=== PATIENT | female | born 1950 | race Caucasian/White ===

== ENCOUNTER → 2020-12-25 11:39 | Outpatient (BNVA) | payer MEDICARE, SELFPAY | PROVIDERS: Family Provider Nurse Practitioner; PCP Pediatrics; Visit Provider Nurse Practitioner | DX: I47.1 Supraventricular tachycardia (principal); Z13.6 Encounter for screening for cardiovascular disorders | CPT/HCPCS: 80053; 80061; 81000; 82306; 82607; 84443; 85025 ==

== ENCOUNTER 2021-01-07 19:13 | Observation (INO) | payer MEDICARE, SELFPAY ==
[2021-01-07 19:25] VITALS: BP 155/82; PULSE 65; RESP 18; TEMP 36.4; O2SAT 99; BMI 22.1
--- NOTE | 2021-01-07 19:35 | ECG_ITS ---
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 Measurements Intervals [place] Rate: 62 P: 40 LA: 114 QRS: -13 QRSD: 69 T: 29 QT: 372 QTc: 378 Interpretive Statements SINUS RHYTHM WITH SHORT LA INTERVAL INFERIOR MYOCARDIAL INFARCTION , PROBABLY OLD [40+ ms Q WAVE AND/OR ST/T ABNORMALITY IN II/aVF] No previous ECG available for comparison Electronically Signed On 01-07-2021 22:18:48 CDT by Emmanuelle Goldsmith M.D. [id number]
--- NOTE | 2021-01-07 19:35 | XR_ITS ---
WS: [id number] Portable AP upright chest, 01/07/2021 Clinical Data: weakness Comparison: PA chest, 01/11/2013. Findings: No nodules, masses or effusions are seen. The heart is normal. The pulmonary vascularity is not increased. No pneumonia or pneumothorax is seen. The aortic arch and descending aorta are tortuo us. There is a calcified granuloma at the right tracheobronchial region. XR/XR chest 1V portable [id number] Impression: Atherosclerosis.
--- NOTE | 2021-01-07 19:35 | CTR_ITS ---
PROCEDURE INFORMATION: Exam: CT Head Without Contrast Exam date and time: 01/07/2021 7:38 PM Age: 70 years old Clinical indication: Numbness / parasthesia and weakness, facial TECHNIQUE: Imaging protocol: Computed tomography of the head without contrast. Radiation optimization: All CT scans at this facility use at least one of these dose optimization techniques: automated exposure control; mA and/or kV adjustment per patient size (includes targeted exams where dose is matched to clinical indication); or iterative reconstruction. COMPARISON: No relevant prior studies available. RADIATION DOSE METRICS: Total DLP (mGy-cm): 686.47 FINDINGS: Brain: Mild volume loss and white matter disease are identified. There is no acute infarct or edema. No hemorrhage. Cerebral ventricles: No ventriculomegaly. Bones/joints: Unremarkable. No acute fracture. Paranasal sinuses: Visualized sinuses are unremarkable. No fluid levels. Mastoid air cells: Visualized mastoid air cells are well aerated. Soft tissues: Unremarkable. CT/CT head wo con* [id number] IMPRESSION: There are no acute concerning abnormalities. Radiation Dose CTDIVOL = (mGy): DLP = 686.47 (mGy-cm)
[2021-01-07 19:47] LABS: Basophils % 0.1 %; Eosinophils % 0.3 %; Hematocrit 38.1 % (37.0-47.0); Hemoglobin 12.7 g/dL (11.5-15.3); Lymphocytes # 0.9 10^3/uL (0.8-4.8); Mean Corpuscular HGB Conc 33.3 g/dL (30.0-36.0); Mean Corpuscular Hemoglobin 29.1 pg (28.0-34.0); Mean Corpuscular Volume 87.2 fL (81-99); Mean Platelet Volume 9.2 fL (7.4-10.4); Monocytes # 0.5 10^3/uL (0.2-0.9); Monocytes % 6.3 %; Neutrophils # 6.54 10^3/uL (1.8-7.7); Neutrophils % 81.8 %; Nucleated Red Blood Cells % 0 %; Platelet Count 280 10^3/cmm (130-400); Red Blood Count 4.37 10^6/uL (4.1-5.3); Red Cell Distribution Width 13.5 % (12.1-15.1)
[2021-01-07 19:58] LABS: Alanine Aminotransferase 15 U/L (0-33); Alkaline Phosphatase 90 IU/L (35-105); Anion Gap 17.2 (5-19); Aspartate Amino Transferase 20 U/L (0-32); Blood Urea Nitrogen 14 mg/dL (8-23); Calcium 9.2 mg/dL (8.5-10.5); Carbon Dioxide 21 mmol/L (22-29); Chloride 94 mmol/L (98-107); Globulin 2.3 g/dL (1.3-4.6); Glucose 144 mg/dL (65-115); Osmolality Calculated 269 mOsm/kg (285-295); Potassium 4.2 mmol/L (3.5-5.1); Sodium 128 mmol/L (136-145); Total Bilirubin 0.4 mg/dL (0.15-1.2); Total Protein 6.3 g/dL (6.6-8.7)
[2021-01-07 19:59] LABS: Add Urine Microscopic? NO
[2021-01-07 20:00] LABS: Troponin(5th) Baseline 9 ng/L (0-10)
[2021-01-07 20:09] LABS: Bilirubin Urine Neg (Negative); Blood Urine Neg (Negative); Glucose Urine UA Norm (Normal); Ketones Urine Negative (Negative); Leukocyte Esterase Urine Negative (Negative); Nitrate Urine Negative (Negative); Protein Urine Neg (Negative); Urine Appearance Clear (CLEAR); Urine Color Yellow (Yellow); Urobilinogen Urine Norm (Negative); pH Urine 7 (5-7)
--- NOTE | 2021-01-07 20:10 | PC.PHAR ---
pt states she takes care of her own medications-pt states she takes aspirin 81mg po daily prn-pt states she is only taking kcl 10meq po daily-ext med history shows last filled on 12/25/20 100d/s for 20meq po daily-pt states she got the moderna covid shot on 12/17/20
--- NOTE | 2021-01-07 20:14 | W.ED.NEUROSD ---
HPI - Neuro Symptoms/Deficit General: Chief Complaint: Neuro Symptoms/Deficit Stated Complaint: WEAKNESS Time Seen by Provider: 01/07/21 19:25 Source: patient and EMS Mode of arrival: EMS Limitations: no limitations History of Present Illness: HPI Narrative: 70-year-old female who states she started having left-sided facial numbness and numbness in her left side down her arm and leg starting yesterday. States she is also had some generalized weakness as well. She denies any difficulty speaking. She was able to ambulate here and has no obvious weakness. She denies any chest pain or headache. Denies any worsening improving factors. Associated symptoms: Deny chest pain, headache(s), nausea or vomiting Review of Systems Const: Denies: fever(s), chills, body aches or change in appetite Eyes: Denies: blurry vision or eye discomfort ENMT: Denies: throat pain or dental pain Card: Denies: chest pain Resp: Denies: dyspnea GI: Denies: abdominal pain, nausea, vomiting or diarrhea : Denies: dysuria Musc: Denies: neck pain or back pain Skin/Breast: Denies: rash Neuro: Reports: numbness in extremities and weakness in extremities; Denies: headache(s) Psych: Denies: depression Perry/Lymph: Denies: easy bruising All/Imm: Denies: urticaria PFSH ED PFSH: Medical History History of uterine cancer SVT (supraventricular tachycardia) Surgical History H/O: hysterectomy (~07/27/00) Family History Sister Asthma Father Cancer lung and colon Social History Smoking and tobacco status: never smoked Second hand smoke exposure: No Smoking risk assessment/counseling performed?: No Alcohol intake: never Desire information about alcohol rehabilitation?: No Counseling given: No Desire information about substance/drug rehabilitation?: No Counseling given: No Adopted: No Caregiver/support person: No Lives independently: Yes Household members: none Housing: House Marital status: Single Current occupational status: retired History of recent travel: No Current gender identity: Female NIH stroke score NIHSS: Level Of Consciousness - 1a: 0 Level Of Consciousness Questions - 1b: Both Correct Level Of Consciousness Commands - 1c: Both Correct Best Gaze - 2: Normal Visual Casas - 3: No Visual Loss Facial Palsy - 4: Normal Motor Arm Right - 5: No Drift Motor Arm Left - 5: No Drift Motor Leg Right - 6: No Drift Motor Leg Left - 6: No Drift Limb Ataxia - 7: Absent Sensory - 8: Normal Best Language - 9: No Aphasia Dysarthia - 10: Normal Extinction And Inattention - 11: 0 Score: Total Score: 0 Physical Exam Const: COMMON NORMALS: no acute distress, patient oriented x3 and healthy appearing HENMT: COMMON NORMALS: normocephalic and atraumatic HEAD & SCALP: normocephalic and atraumatic Eye: COMMON NORMALS: Equal, round and reactive pupils present and EOMs intact bilaterally PUPIL: Yes Equal, round and reactive pupils present Neck/C-Spine: COMMON NORMALS: full ROM and supple Chest: COMMONS NORMALS: normal inspection of the chest and normal palpation of entire chest wall Resp: COMMON NORMALS: normal respiratory effort, No retractions, No use of accessory muscles and clear to auscultation bilaterally AUSCULTATION: clear to auscultation bilaterally Cardio: COMMON NORMALS: regular rate, regular rhythm and No murmurs present (Cardio) RATE: regular rate RHYTHM: regular rhythm GI: COMMON NORMALS: Normal to inspection, nondistended, normoactive bowel sounds present, Soft to palpation, non-tender and no masses PALPATION: Yes Soft to palpation Extremity: COMMON NORMALS: normal to inspection and full ROM Neuro: COMMON NORMALS: patient oriented x3, moves all extremities and no focal motor deficits CRANIAL NERVES: Yes CN normal except as noted SPEECH: speech normal GAIT: Yes Normal gait present MOTOR EXAM: 5/5 motor strength present throughout Psych: COMMON NORMALS: mental status grossly normal, Normal thought process present and cooperative THOUGHT PROCESS: Normal thought process present Skin: COMMON NORMALS: no rashes or lesions noted and no wounds GENERAL SKIN EXAM: no rashes or lesions noted Course Vital Signs: Vital signs: Vital Signs Temperature 97.6 F 01/07/21 19:25 Pulse Rate 88 01/07/21 21:50 Respiratory Rate 16 01/07/21 21:50 Blood Pressure 156/82 01/07/21 21:50 Pulse Oximetry 97 01/07/21 21:50 MDM - Neuro Symptoms/Deficit MDM Narrative: Medical decision making narrative: Patient presents here with paresthesias along with weakness. Her CT head here shows no acute stroke. She is still having some paresthesias and is quite concerned. I will admit her for observation to rule out a CVA. She is not a TPA candidate as her symptoms have been going on for 2 days. Lab Data: Labs: Lab Results 01/07/21 01/07/21 01/07/21 Range/Units 19:25 19:35 19:35 WBC 8.0 (4.0-10.0) 10^3/ uL RBC 4.37 (4.1-5.3) 10^6/u L Hgb 12.7 (11.5-15.3) g/dL Hct 38.1 (37.0-47.0) % MCV 87.2 (81-99) fL MCH 29.1 (28.0-34.0) pg MCHC 33.3 (30.0-36.0) g/dL RDW 13.5 (12.1-15.1) % Plt Count 280 (130-400) 10^3/c mm MPV 9.2 (7.4-10.4) fL Neut % (Auto) 81.8 % Lymph % (Auto) 11.0 % [place] % (Auto) 6.3 % Eos % (Auto) 0.3 % Baso % (Auto) 0.1 % Neut # (Auto) 6.54 (1.8-7.7) 10^3/u L Lymph # (Auto) 0.9 (0.8-4.8) 10^3/u L [place] # (Auto) 0.5 (0.2-0.9) 10^3/u L Eos # (Auto) 0.0 (0.0-0.8) 10^3/u L Baso # (Auto) 0.0 (0.0-0.1) 10^3/u L Nucleated RBC % (a uto) 0 % Nucleated RBCs # 0.0 /100WBC PT 14.20 (12.1-14.9) SECO NDS INR 1.07 (0.8-1.2) Sodium (136-145) mmol/L Potassium (3.5-5.1) mmol/L Chloride (98-107) mmol/L Carbon Dioxide (22-29) mmol/L Anion Gap (5-19) BUN (8-23) mg/dL Creatinine (0.5-0.9) mg/dL GFR Calculation (90-130) mL/min Glucose (65-115) mg/dL Calculated Osmolal ity (285-295) mOsm/k g Calcium (8.5-10.5) mg/dL Total Bilirubin (0.15-1.2) mg/dL AST (0-32) U/L ALT (0-33) U/L Alkaline Phosphata se (35-105) IU/L Troponin T Baselin e (0-10) ng/L Total Protein (6.6-8.7) g/dL Albumin (3.5-5.2) g/dL Globulin (1.3-4.6) g/dL Urine Color Yellow (Yellow) Urine Appearance Clear (CLEAR) Urine pH 7 (5-7) Ur Specific Gravit y 1.010 (1.005-1.030) Urine Protein Neg (Negative) Urine Glucose (UA) Norm (Normal) Urine Ketones Negative (Negative) Urine Blood Neg (Negative) Urine Nitrate Negative (Negative) Urine Bilirubin Neg (Negative) Urine Urobilinogen Norm (Negative) mg/dL Ur Leukocyte Radha ase Negative (Negative) 01/07/21 01/07/21 Range/Units 19:35 19:35 WBC (4.0-10.0) 10^3/ uL RBC (4.1-5.3) 10^6/u L Hgb (11.5-15.3) g/dL Hct (37.0-47.0) % MCV (81-99) fL MCH (28.0-34.0) pg MCHC (30.0-36.0) g/dL RDW (12.1-15.1) % Plt Count (130-400) 10^3/c mm MPV (7.4-10.4) fL Neut % (Auto) % Lymph % (Auto) % [place] % (Auto) % Eos % (Auto) % Baso % (Auto) % Neut # (Auto) (1.8-7.7) 10^3/u L Lymph # (Auto) (0.8-4.8) 10^3/u L [place] # (Auto) (0.2-0.9) 10^3/u L Eos # (Auto) (0.0-0.8) 10^3/u L Baso # (Auto) (0.0-0.1) 10^3/u L Nucleated RBC % (a uto) % Nucleated RBCs # /100WBC PT (12.1-14.9) SECO NDS INR (0.8-1.2) Sodium 128 L (136-145) mmol/L Potassium 4.2 (3.5-5.1) mmol/L Chloride 94 L (98-107) mmol/L Carbon Dioxide 21 L (22-29) mmol/L Anion Gap 17.2 (5-19) BUN 14 (8-23) mg/dL Creatinine 0.7 (0.5-0.9) mg/dL GFR Calculation 83.0 L (90-130) mL/min Glucose 144 H (65-115) mg/dL Calculated Osmolal ity 269 L (285-295) mOsm/k g Calcium 9.2 (8.5-10.5) mg/dL Total Bilirubin 0.4 (0.15-1.2) mg/dL AST 20 (0-32) U/L ALT 15 (0-33) U/L Alkaline Phosphata se 90 (35-105) IU/L Troponin T Baselin e 9 (0-10) ng/L Total Protein 6.3 L (6.6-8.7) g/dL Albumin 4.0 (3.5-5.2) g/dL Globulin 2.3 (1.3-4.6) g/dL Urine Color (Yellow) Urine Appearance (CLEAR) Urine pH (5-7) Ur Specific Gravit y (1.005-1.030) Urine Protein (Negative) Urine Glucose (UA) (Normal) Urine Ketones (Negative) Urine Blood (Negative) Urine Nitrate (Negative) Urine Bilirubin (Negative) Urine Urobilinogen (Negative) mg/dL Ur Leukocyte Radha ase (Negative) Imaging Data^: CXR: Attestation: I personally reviewed and interpreted this imaging study as follows: My impression: no acute abnormality CT Head: Attestation: I personally reviewed and interpreted this imaging study as follows: Radiologist's impression: [address] [address] [address] Scan Report Signed Patient: Janel De La Rosa Unit #: [id number] : 1950 Age/Sex: 70 / F ADM Date: 01/07/21 Loc: ER Room/Bed: Attending Dr: Ordering Provider/Ordering MD: Jeff Allan MD Date of Service: 01/07/21 Procedure(s): CT head wo con* [id number] Accession Number(s): [id number] Report Number: [id number] PROCEDURE INFORMATION: Exam: CT Head Without Contrast Exam date and time: 01/07/2021 7:38 PM Age: 70 years old Clinical indication: Numbness / parasthesia and weakness, facial TECHNIQUE: Imaging protocol: Computed tomography of the head without contrast. Radiation optimization: All CT scans at this facility use at least one of these dose optimization techniques: automated exposure control; mA and/or kV adjustment per patient size (includes targeted exams where dose is matched to clinical indication); or iterative reconstruction. COMPARISON: No relevant prior studies available. RADIATION DOSE METRICS: Total DLP (mGy-cm): 686.47 FINDINGS: Brain: Mild volume loss and white matter disease are identified. There is no acute infarct or edema. No hemorrhage. Cerebral ventricles: No ventriculomegaly. Bones/joints: Unremarkable. No acute fracture. Paranasal sinuses: Visualized sinuses are unremarkable. No fluid levels. Mastoid air cells: Visualized mastoid air cells are well aerated. Soft tissues: Unremarkable. CT/CT head wo con* [id number] IMPRESSION: There are no acute concerning abnormalities. 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
[2021-01-07 20:38] LABS: INR 1.07 (0.8-1.2)
--- NOTE | 2021-01-07 21:35 | ECG_ITS ---
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 Measurements Intervals [place] Rate: 60 P: 60 MO: 150 QRS: -1 QRSD: 76 T: 31 QT: 388 QTc: 389 Interpretive Statements SINUS RHYTHM No previous ECG available for comparison Electronically Signed On 01-07-2021 22:33:01 CDT by Emmanuelle Goldsmith M.D. [id number]
[2021-01-07 21:50] VITALS: BP 156/82; PULSE 88; RESP 16; O2SAT 97
[2021-01-07] MEDS: aspirin 81 mg Chew Tablet 324 MG PO (22:07)
--- NOTE | 2021-01-07 22:08 | PM.HP ---
Providers/Chief Complaint Admitting Physician: Placido Camacho MD Primary Care Provider: Sonja Mcclure MD Chief Complaint: WEAKNESS History of Present Illness Janel De La Rosa is a 70 year old female who presented today with chief complaint of numbness of left side of her face heaviness in her left leg numbness and tingling. Patient received COVID-19 shot on 12/17 and recently started getting vitamin B-12 shots along vitamin D. She is a former and very active for her age, on 01/04 she started noticing heaviness on left side of her face and left leg. She did not experience any typical strokelike symptoms no slurring of speech, facial droop or motor weakness. She has been able to walk on her own and carry her daily activities. Today her symptoms were getting worse and she was worried about stroke. She lives 50 miles away, she was coming with her sister to the [facility] when she started experiencing nausea and dizziness, this stopped at the nearby gas station and called ambulance. NIH score 0 CT head unremarkable, chest x-ray unremarkable CBC normal sodium 128 noted, at the time of my evaluation NIH 0 systolic blood pressure 151, he was saturating well on room air, negative Sherry-Hallpike maneuver, EKG shows sinus rhythm Patient also noticed bright bleed after wiping herself today, she does endorse history of hemorrhoids, never had colonoscopy before, her hemoglobin is stable she is hemodynamically stable, she is also endorsing abdominal cramps and nausea but no vomiting. Review of Systems Const: Reports: body aches, change in appetite, fatigue and malaise; Denies: fever(s) or chills Eyes: Denies: change in vision ENMT: Denies: throat pain Card: Denies: chest pain Resp: Denies: dyspnea GI: Reports: nausea, early satiety and bloating; Denies: vomiting or diarrhea : Denies: flank pain Musc: Denies: neck pain Skin/Breast: Denies: rash Neuro: Denies: headache(s) Psych: Reports: anxiety Endo: Denies: polyuria Perry/Lymph: Denies: easy bruising All/Imm: Denies: urticaria Medications/Allergies Home Medications Medication Instructions Recorded Confirmed Last Taken Type syringe with needle 3 mL 25 gauge #1 ea 12/29/20 01/07/21 Unknown Rx x 1 acetaminophen [Tylenol Extra 500 mg PO PRN 01/07/21 01/07/21 01/07/21 History Strength] aspirin [Aspir-81] 81 mg PO DAILY PRN 01/07/21 01/07/21 01/07/21 History 2 tabs cyanocobalamin (vitamin B-12) 1,000 mcg IM Q30D 01/07/21 01/07/21 01/04/21 History ergocalciferol (vitamin D2) 1,250 mcg PO Q7D 01/07/21 01/07/21 01/07/21 History magnesium 250 mg PO DAILY 01/07/21 01/07/21 01/07/21 History metoprolol succinate [Toprol XL] 100 mg PO DAILY@08 01/07/21 01/07/21 01/07/21 History potassium chloride [Klor-Con M20] 10 meq PO DAILY 01/07/21 01/07/21 01/07/21 08:00 History Allergies Allergy/AdvReac Type Severity Reaction Status Date / Time piroxicam [From Feldene] AdvReac ADR-Gastrointestinal Verified 01/07/21 20:09 Upset prochlorperazine AdvReac ADR-Gastrointestinal Verified 01/07/21 20:09 [From Compazine] Upset PFSH Acute PFSH: Medical History History of uterine cancer SVT (supraventricular tachycardia) Surgical History H/O: hysterectomy (~07/27/00) Family History Sister Asthma Father Cancer lung and colon Social History Smoking and tobacco status: never smoked Second hand smoke exposure: No Smoking risk assessment/counseling performed?: No Alcohol intake: never Desire information about alcohol rehabilitation?: No Counseling given: No Desire information about substance/drug rehabilitation?: No Counseling given: No Adopted: No Caregiver/support person: No Lives independently: Yes Household members: none Housing: House Marital status: Single Current occupational status: retired History of recent travel: No Current gender identity: Female Vitals/I&O/Wt Last Vital Signs Temp 97.6 F 01/07/21 19:25 Pulse 88 01/07/21 21:50 Resp 16 01/07/21 21:50 BP 156/82 01/07/21 21:50 Pulse Ox 97 01/07/21 21:50 Weight last 48 hrs Weight 58.513 kg Physical Exam Narrative: EXAM NARRATIVE: Pleasant elderly female, appears stated age, NIH 0 Saturating well on room air S1, S2 Sherry-Hallpike maneuver negative Good strength of upper and lower extremities Sensations intact no facial droop No active neurological deficits Bilateral breath sounds no audible stridor or wheezing Abdomen soft nontender Lower extremity no edema gangrene or ulcer Anxious mood and appropriate affect No joint swelling or cellulitis Data : 01/07/21 19:35 01/07/21 19:35 A&P Assessment and plan (1) Paresthesia: Status: Acute (2) Weakness: Status: Acute (3) Vitamin B12 deficiency: Status: Acute Additional A&P Information Paresthesia Patient is endorsing left-sided facial numbness, heaviness in her left leg, she was concerned that her symptoms were related to COVID-19 vaccination which was done on 12/17, her symptoms started on 01/04 However her NIH is 0 no facial droop has good sensations I do believe her symptoms are secondary to B12 deficiency with active hyponatremia She is euvolemic does not take any SSRI, no previous history of smoking x-ray does not show any lung mass We will request urine and serum osmolarity, TSH and uric acid, I would avoid adding normal saline, like to do fluid restriction trial NIH is 0 she does not have typical strokelike symptoms, her only risk factor is age and hypertension, will request CTA head and neck, kindly reevaluate in the morning if there is merit of getting MRI at this point Hypertension: She takes metoprolol succinate 100 mg daily for her SVTs I would add lisinopril 10 mg daily Hyponatremia This seems to be acute in nature as 12/25/20 sodium level was normal She is euvolemic We will follow up with serum/urine osmolarity, currently on fluid restriction to rule out SIADH, follow-up with TSH He does take potassium for hypokalemia, blood sugar is within normal range, I do not suspect adrenal gland pathology Blood bleed per rectum Normal hemodynamics and stable hemoglobin Patient does have history of hemorrhoids Never had colonoscopy She will need outpatient follow-up SVT: Continue Toprol currently she is in sinus rhythm heart rate in 60-70 range PT evaluation in the morning Regular diet DVT prophylaxis Lovenox Full code Attestations Medical Necessity Statement*: Anticipating discharge in less than 48 hours currently need work-up of hyponatremia due to symptoms of paresthesia, heaviness in her leg Time Spent in Patient Care: 40mins Coding Level of Care Code Acute Cat Dog Or Other Pet Groomer for Chg Fwd Diagnoses Paresthesia R20.2 Weakness R53.1 Vitamin B12 deficiency E53.8
--- NOTE | 2021-01-07 22:17 | PC.NURSE ---
EKG done at 2205 and shown to ER doctor
[2021-01-07 22:32] LABS: Troponin 5 2HR 9.17 ng/L (0-10); Troponin 5 2HR Delta 0.17 ABS# (0-10)
[2021-01-07 22:33] VITALS: BP 151/81; PULSE 62; RESP 16; O2SAT 97
--- NOTE | 2021-01-07 23:13 | CTR_ITS ---
PROCEDURE INFORMATION: Exam: CT Angiography Head With Contrast Exam date and time: 01/07/2021 11:18 PM Age: 70 years old Clinical indication: Numbness and weakness; Patient HX: General weakness with left facial and arm parasthesia. ; Additional info: Paresthesia of face and left arm TECHNIQUE: Imaging protocol: Computed tomography angiography of the head with intravenous contrast. 3D rendering (Not supervised by radiologist): MIP and/or 3D reconstructed images were created by the technologist. Radiation optimization: All CT scans at this facility use at least one of these dose optimization techniques: automated exposure control; mA and/or kV adjustment per patient size (includes targeted exams where dose is matched to clinical indication); or iterative reconstruction. Contrast material: OMNI 350; Contrast volume: 95 ml; Contrast route: INTRAVENOUS (IV); COMPARISON: CT head wo con* [id number] 01/07/2021 8:21 PM RADIATION DOSE METRICS: Total DLP (mGy-cm): 1688.18 FINDINGS: ANTERIOR CIRCULATION: Right internal carotid artery: Unremarkable. Intracranial segment is patent with no significant stenosis. No aneurysm. Right middle cerebral artery: Unremarkable. No occlusion or significant stenosis. No aneurysm. Right anterior cerebral artery: Unremarkable. No occlusion or significant stenosis. No aneurysm. Left internal carotid artery: Unremarkable. Intracranial segment is patent with no significant stenosis. No aneurysm. Left middle cerebral artery: Unremarkable. No occlusion or significant stenosis. No aneurysm. Left anterior cerebral artery: Unremarkable. No occlusion or significant stenosis. No aneurysm. POSTERIOR CIRCULATION: Right vertebral artery: Unremarkable. No occlusion or significant stenosis. No aneurysm. Left vertebral artery: Unremarkable. No occlusion or significant stenosis. No aneurysm. Basilar artery: Unremarkable. No occlusion or significant stenosis. No aneurysm. Right posterior cerebral artery: Unremarkable. No occlusion or significant stenosis. No aneurysm. Left posterior cerebral artery: Unremarkable. No occlusion or significant stenosis. No aneurysm. IMPRESSION: No significant intracranial vascular abnormality identified. PROCEDURE INFORMATION: Exam: CT Angiography Neck With Contrast Exam date and time: 01/07/2021 11:18 PM Age: 70 years old Clinical indication: Numbness and weakness; Patient HX: General weakness with left facial and arm parasthesia. ; Additional info: Paresthesia of face and left arm TECHNIQUE: Imaging protocol: Computed tomography angiography of the neck with intravenous contrast. 3D rendering (Not supervised by radiologist): MIP and/or 3D reconstructed images were created by the technologist. Radiation optimization: All CT scans at this facility use at least one of these dose optimization techniques: automated exposure control; mA and/or kV adjustment per patient size (includes targeted exams where dose is matched to clinical indication); or iterative reconstruction. Contrast material: OMNI 350; Contrast volume: 95 ml; Contrast route: INTRAVENOUS (IV); COMPARISON: CT head wo [facility]* [id number] 01/07/2021 8:21 PM RADIATION DOSE METRICS: Total DLP (mGy-cm): 1688.18 FINDINGS: Right common carotid artery: No stenosis. No dissection or occlusion. Right internal carotid artery: Calcified plaque is seen at the proximal right ICA, with no significant stenosis. Right external carotid artery: No occlusion or stenosis of the origin. Right vertebral artery: No stenosis. No dissection or occlusion. Left common carotid artery: No stenosis. No dissection or occlusion. Left internal carotid artery: Calcified plaque is seen at the left proximal ICA, with no significant stenosis. Left external carotid artery: No occlusion or stenosis of the origin. Left vertebral artery: No stenosis. No dissection or occlusion. CT/CT angio headneck* [id number] IMPRESSION: No acute vascular abnormality identified in the neck. REFERENCES: NASCET CRITERIA. The degree of internal carotid artery stenosis is based on NASCET criteria. Normal is no stenosis. Mild is less than 50% stenosis. Moderate is 50-69% stenosis. Severe is 70% to 99% stenosis. Total occlusion is no detectable patent lumen. Radiation Dose CTDIVOL = (mGy): DLP = 1688.18~1688.18 (mGy-cm)
[2021-01-07] MEDS: iohexol 350 mg/mL 100 mL Btl IV (23:39)
[2021-01-08] VITALS: BP 136/78; PULSE 65; RESP 16; TEMP 36.6; O2SAT 97
[2021-01-08] MEDS: cyanocobalamin 1,000 mcg/mL SDV 1000 MCG IM (00:28)
[2021-01-08] MEDS: acetaminophen 500 mg Tablet PO (02:03)
[2021-01-08 02:56] LABS: Blood Urea Nitrogen 13 mg/dL (8-23); Calcium 9.5 mg/dL (8.5-10.5); Carbon Dioxide 27 mmol/L (22-29); Chloride 100 mmol/L (98-107); Glucose 74 mg/dL (65-115); Osmolality Calculated 283 mOsm/kg (285-295); Sodium 137 mmol/L (136-145)
[2021-01-08 03:00] LABS: Thyroid Stimulating Hormone 1.66 uIU/mL (0.27-4.20); Uric Acid 3.6 mg/dL (2.4-5.7)
[2021-01-08 04:00] VITALS: BP 134/70; PULSE 58; RESP 16; TEMP 36.9; O2SAT 98
[2021-01-08 06:55] VITALS: BP 137/71; PULSE 59; RESP 18; TEMP 36.8; O2SAT 99
[2021-01-08 08:00] VITALS: BP 137/71; PULSE 59; RESP 18; TEMP 36.8; O2SAT 99
[2021-01-08] MEDS: metoprolol succinate ER (24 HR) 100 mg Tablet PO (08:31)
[2021-01-08] MEDS: potassium chloride ER 20 mEq Tablet 10 MEQ PO (08:31)
[2021-01-08 11:06] VITALS: BP 145/69; PULSE 58; RESP 18; TEMP 36.6; O2SAT 98
--- NOTE | 2021-01-08 11:13 | PM.DCS ---
Discharge Providers Date of Admission: 01/07/21 21:35 Date of Discharge: January 08, 2021 Attending Provider at Admission: Placido Camacho MD Attending Provider at Discharge: Andrei Malhotra Primary Care Provider: Sonja Mcclure MD Diagnoses at Discharge Discharge Diagnosis (1) Paresthesia: Status: Acute (2) Weakness: Status: Acute (3) Vitamin B12 deficiency: Status: Acute Reason for Visit Reason for Visit: WEAKNESS Hospital Course Hospital Course Please see patient's H&P for more details. Briefly the patient was admitted for observation with complaints of paresthesias. She felt numbness and heaviness renal her left lower extremity and bilaterally in the face. Her symptoms are currently resolved. Neuro examination was nonfocal, unremarkable. CT and CTA were done. No significant findings. She had mild hyponatremia which has resolved. This morning she states that she is feeling well and she wants to be discharged home. She does not want to wait to complete additional testing such as MRI of the brain and evaluation of her hyponatremia. For these I instructed her to follow-up with her primary care physician. I also asked her to come back to emergency room if she develops any new or similar complaints. She verbalized understanding and agreement. The patient also reported mild blood on toilet tissue. This could be due to hemorrhoids. She denies any blood in the stool or black stool. She states that she is going to speak with her primary care physician about this. I also recommended her to have evaluation by the surgeon and have colonoscopy in the near future. She agreed. She will speak with her primary care physician about this. Physical Exam Narrative: EXAM NARRATIVE: Awake alert oriented. No acute distress. Mood and affect are appropriate. Responses are adequate. Skin is warm and dry. Moist mucous memories. Eyes PERRL, extraocular muscles are intact. No facial asymmetry. Normal speech. Neck supple. No JVD Lungs clear to auscultation bilaterally. No wheezes or crackles Heart S1, S2, regular Abdomen soft, nontender, bowel sounds are present Extremities no edema cyanosis or calf tenderness bilaterally Neuro evaluation is nonfocal. Discharge Data Data Completed and Pending: Completed Studies During Hospitalization Category Date Time Status CT angio headneck * [id number] Stat Cat Scan 01/07/21 23:[address] head wo con* [id number] Urgent Cat Scan 01/07/21 19:35 Completed XR chest 1V qiana ble [id number] Urgent Exams 01/07/21 19:35 Completed Pending at discharge Category Date Time Status Osmolality Serum Routine Lab 01/08/21 01:56 Received Osmolality Urine Routine Lab 01/08/21 09:20 Received Urine Random Sodi um Routine Lab 01/08/21 09:20 Received MR head wo/w con [id number] Routine MRI 01/08/21 10:27 Ordered Labs from last 24 hours 01/08/21 01/08/21 01/08/21 09:20 09:20 01:56 WBC RBC Hgb Hct MCV MCH MCHC RDW Plt Count MPV Neut % (Auto) Lymph % (Auto) [place] % (Auto) Eos % (Auto) Baso % (Auto) Neut # (Auto) Lymph # (Auto) [place] # (Auto) Eos # (Auto) Baso # (Auto) Nucleated RBC % (a uto) Nucleated RBCs # PT INR Sodium 137 Potassium 4.0 Chloride 100 Carbon Dioxide 27 Anion Gap 14.0 BUN 13 Creatinine 0.7 GFR Calculation 83.0 L Glucose 74 Serum Osmolality Calculated Osmolal ity 283 L Uric Acid Calcium 9.5 Total Bilirubin AST ALT Alkaline Phosphata se Troponin T Baselin e Troponin T 120 Min [place] Troponin T Total Protein Albumin Globulin TSH Urine Color Urine Appearance Urine pH Ur Specific Gravit y Urine Protein Urine Glucose (UA) Urine Ketones Urine Blood Urine Nitrate Urine Bilirubin Urine Urobilinogen Ur Leukocyte Radha ase Urine Osmolality Pending Ur Random Sodium Pending 01/08/21 01/08/21 01/07/21 01:56 01:56 22:07 WBC RBC Hgb Hct MCV MCH MCHC RDW Plt Count MPV Neut % (Auto) Lymph % (Auto) [place] % (Auto) Eos % (Auto) Baso % (Auto) Neut # (Auto) Lymph # (Auto) [place] # (Auto) Eos # (Auto) Baso # (Auto) Nucleated RBC % (a uto) Nucleated RBCs # PT INR Sodium Potassium Chloride Carbon Dioxide Anion Gap BUN Creatinine GFR Calculation Glucose Serum Osmolality Pending Calculated Osmolal ity Uric Acid 3.6 Calcium Total Bilirubin AST ALT Alkaline Phosphata se Troponin T Baselin e Troponin T 120 Min [place] 9.17 Delta Troponin T 0.17 Total Protein Albumin Globulin TSH 1.66 Urine Color Urine Appearance Urine pH Ur Specific Gravit y Urine Protein Urine Glucose (UA) Urine Ketones Urine Blood Urine Nitrate Urine Bilirubin Urine Urobilinogen Ur Leukocyte Radha ase Urine Osmolality Ur Random Sodium 01/07/21 01/07/21 01/07/21 19:35 19:35 19:35 WBC RBC Hgb Hct MCV MCH MCHC RDW Plt Count MPV Neut % (Auto) Lymph % (Auto) [place] % (Auto) Eos % (Auto) Baso % (Auto) Neut # (Auto) Lymph # (Auto) [place] # (Auto) Eos # (Auto) Baso # (Auto) Nucleated RBC % (a uto) Nucleated RBCs # PT 14.20 INR 1.07 Sodium 128 L Potassium 4.2 Chloride 94 L Carbon Dioxide 21 L Anion Gap 17.2 BUN 14 Creatinine 0.7 GFR Calculation 83.0 L Glucose 144 H Serum Osmolality Calculated Osmolal ity 269 L Uric Acid Calcium 9.2 Total Bilirubin 0.4 AST 20 ALT 15 Alkaline Phosphata se 90 Troponin T Baselin e 9 Troponin T 120 Min [place] Troponin T Total Protein 6.3 L Albumin 4.0 Globulin 2.3 TSH Urine Color Urine Appearance Urine pH Ur Specific Gravit y Urine Protein Urine Glucose (UA) Urine Ketones Urine Blood Urine Nitrate Urine Bilirubin Urine Urobilinogen Ur Leukocyte Radha ase Urine Osmolality Ur Random Sodium 01/07/21 01/07/21 19:35 19:25 WBC 8.0 RBC 4.37 Hgb 12.7 Hct 38.1 MCV 87.2 MCH 29.1 MCHC 33.3 RDW 13.5 Plt Count 280 MPV 9.2 Neut % (Auto) 81.8 Lymph % (Auto) 11.0 [place] % (Auto) 6.3 Eos % (Auto) 0.3 Baso % (Auto) 0.1 Neut # (Auto) 6.54 Lymph # (Auto) 0.9 [place] # (Auto) 0.5 Eos # (Auto) 0.0 Baso # (Auto) 0.0 Nucleated RBC % (a uto) 0 Nucleated RBCs # 0.0 PT INR Sodium Potassium Chloride Carbon Dioxide Anion Gap BUN Creatinine GFR Calculation Glucose Serum Osmolality Calculated Osmolal ity Uric Acid Calcium Total Bilirubin AST ALT Alkaline Phosphata se Troponin T Baselin e Troponin T 120 Min [place] Troponin T Total Protein Albumin Globulin TSH Urine Color Yellow Urine Appearance Clear Urine pH 7 Ur Specific Gravit y 1.010 Urine Protein Neg Urine Glucose (UA) Norm Urine Ketones Negative Urine Blood Neg Urine Nitrate Negative Urine Bilirubin Neg Urine Urobilinogen Norm Ur Leukocyte Radha ase Negative Urine Osmolality Ur Random Sodium Vitals: Last Vital Signs Temp 97.9 F 01/08/21 11:06 Pulse 58 L 01/08/21 11:06 Resp 18 01/08/21 11:06 BP 145/69 01/08/21 11:06 Pulse Ox 98 01/08/21 11:06 Discharge Plan Discharge Patient Disposition: Home Condition: Stable Prescriptions: Continued aspirin 81 mg Tablet,Delayed Release (Dr/Ec) 81 mg PO DAILY PRN (Reason: unknown) RF: 0 Tylenol Extra Strength 500 mg Tablet 500 mg PO PRN RF: 0 magnesium 250 mg Tablet 250 mg PO DAILY RF: 0 Toprol XL 100 mg tablet extended release 24 hr 100 mg PO DAILY@08 RF: 0 Klor-Con M20 20 mEq tablet,ER particles/crystals 10 meq PO DAILY RF: 0 cyanocobalamin (vitamin B-12) 1,000 mcg/mL solution 1,000 mcg IM Q30D RF: 0 ergocalciferol (vitamin D2) 1,250 mcg (50,000 unit) capsule 1,250 mcg PO Q7D RF: 0 Discontinued (DME) syringe with needle 3 mL 25 gauge x 1 syringe See Rx Instructions .ROUTE .MEDSUPPLY Qty: 1 RF: 2 Discharge Orders: Discharge Order (Routine); Ordered 01/08/21 Ordered By: Andrei Malhotra Referrals: Sonja Mcclure MD [Primary Care Provider] - Discharge Diet: Usual diet Discharge Activity: Resume usual activity Activity Restrictions/Additional Instructions: Please follow-up with your primary care physician as soon as possible. Please discuss about further evaluations of your symptoms. Please ask your primary care physician to consider MRI of the brain. If your symptoms persist consultation with the neurologist can be considered. Please come back to emergency room if you develop any new or worsening symptoms. Discharge Attestations Time Spent in Discharge Care*: less than 30 min Quality Metrics Clinical Quality Measures During this hospital stay, did patient experience: None Coding Level of Care Code Acute Chg FW DC note Diagnoses Paresthesia R20.2 Weakness R53.1 Vitamin B12 deficiency E53.8
[2021-01-08 11:19] LABS: Urine Random Sodium 68 mmol/L
--- NOTE | 2021-01-08 11:55 | PC.CHAP ---
Pastoral Care Encounter/Spiritual Assessment Type of Contact [] Declined store consultant visit [] Patient/Family/Request visit [] Outpatient visit [] Follow-up visit [] Physician referral [] Code/Alert [xx] Routine visit [] Staff referral [] Actively dying [] Patient sleeping [] Family support [] [] Out of room [] Palliative care [] [] Receiving care in room [] Pre-surgical visit [] Trauma [] Long length of stay [] ICU visit [] Other: Relational/Emotional Strength [xx] Patient feels connected with others/family/visitors/staff [] Distress [] Loneliness/isolation [] Abandonment Spirituality of Patient [xx] Person of Tati [xx] Attends Roman Catholic of their Tati [xx] Believes in Prayer [xx] Reads Bible or Mandaeism materials [] There are Spiritual issues to be addressed Field Mechanic Interventions [xx] Prayer [xx] Active listening [xx] Non-anxious presence [] Spiritual/emotional support [] Crisis/trauma care [] Spiritual counseling [] Bereavement support [] Provided bereavement packet [xx] Provided Bible/devotional materials [] Provided toy/stuffed animal, coloring book to patient or family member [] Provided Communion [] Anointing/[facility] [place] [facility] [] Salvation [xx] Completed spiritual assessment [] Other: Impact on Illness or Injury [] Angry [] Fearful [] Anxious [] Often cries [] Exhaustion [] Unable to work [] Unable to attend buddhist [] Unable to walk/stand [] Unable to read [] Unable to drive [] Unable to eat/drink [] Unable to sleep [] Unable to be with family [] Patient intubated [] Other: Summary [employer] devotional given to patient. Patient was sitting up but feeling dizzy. She was waiting for nurse to arrive so prayer and visit kept short. Nurse arrived to check on patient. Time spent with patient 5 minutes
[2021-01-08 13:44] VITALS: BP 145/69; PULSE 58; RESP 18; TEMP 36.6; O2SAT 98
[2021-01-11 15:28] LABS: Osmolality Serum 286 mOsm/kg (278-305)
[2021-01-11 15:28] LABS: Osmolality Urine 604 mOsm/kg (50-1200)
== END 2021-01-08 12:50 | disposition home or self-care (01) ==
LOC: ER 21:34 → MEDSURG 22:04
PROVIDERS: Admitting Provider Internal Medicine; Emergency Provider Emergency Medicine; PCP Pediatrics; Visit Provider Internal Medicine
DX: R20.2 Paresthesia of skin (principal); R53.1 Weakness; E53.8 Deficiency of other specified B group vitamins; Z85.42 Personal history of malignant neoplasm of other parts of uterus
CPT/HCPCS: 36415; 70450; 70496; 70498; 71045; 80048; 80053; 81003; 83930; 83935; 84300; 84443; 84484; 84550; 85025; 85610; 93005; 96372; 97161; 99285; G0378; J3420; Q9967

== ENCOUNTER → 2021-04-05 11:55 | Outpatient (BNVA) | payer MEDICARE, SELFPAY | PROVIDERS: PCP Nurse Practitioner; Visit Provider Nurse Practitioner | DX: I10 Essential (primary) hypertension (principal); E53.8 Deficiency of other specified B group vitamins; E55.9 Vitamin D deficiency, unspecified; I47.1 Supraventricular tachycardia | CPT/HCPCS: 80053; 82306; 82607; 85025 ==

== ENCOUNTER → 2021-09-13 09:46 | Outpatient (BNVA) | payer MEDICARE, SELFPAY | PROVIDERS: PCP Nurse Practitioner; Visit Provider Nurse Practitioner | DX: I10 Essential (primary) hypertension (principal); E53.8 Deficiency of other specified B group vitamins; E55.9 Vitamin D deficiency, unspecified | CPT/HCPCS: 80053; 80061; 82306; 82607; 85025 ==

== ENCOUNTER → 2022-04-13 09:20 | Outpatient (BNVA) | payer MEDICARE, SELFPAY | PROVIDERS: PCP Nurse Practitioner; Visit Provider Nurse Practitioner | DX: I10 Essential (primary) hypertension (principal); I47.1 Supraventricular tachycardia; G45.9 Transient cerebral ischemic attack, unspecified; E55.9 Vitamin D deficiency, unspecified; S20.169A Insect bite (nonvenomous) of breast, unspecified breast, initial encounter; W57.XXXA Bitten or stung by nonvenomous insect and other nonvenomous arthropods, initial encounter; E53.8 Deficiency of other specified B group vitamins | CPT/HCPCS: 80053; 80061; 82306; 84443; 85025 ==

== ENCOUNTER → 2022-12-15 11:54 | Outpatient (BNVA) | payer MEDICARE, SELFPAY | PROVIDERS: PCP Nurse Practitioner; Visit Provider Nurse Practitioner | DX: E53.8 Deficiency of other specified B group vitamins (principal); E55.9 Vitamin D deficiency, unspecified; I10 Essential (primary) hypertension; I47.1 Supraventricular tachycardia | CPT/HCPCS: 80053; 80061; 82607; 84443; 85025 ==

== ENCOUNTER → 2023-09-11 14:26 | Outpatient (BNVA) | payer MEDICARE, SELFPAY | PROVIDERS: PCP Nurse Practitioner; Visit Provider Nurse Practitioner | DX: I10 Essential (primary) hypertension (principal) | CPT/HCPCS: 80053; 80061; 82607; 85025 ==

== ENCOUNTER → 2023-12-19 11:14 | Outpatient (BNVA) | payer SELFPAY | PROVIDERS: PCP Nurse Practitioner; Visit Provider Nurse Practitioner | DX: Z01.89 Encounter for other specified special examinations (principal) ==